=== PATIENT | male | born 1955 | race Caucasian/White ===

== ENCOUNTER → 2024-12-24 10:20 | Outpatient (CLI) | payer MEDICARE, OTHER, SELFPAY ==
[2024-12-24 18:59] LABS: Add Manual Diff / Slide Review NO; Basophils Absolute Auto 100 /uL (0-100); Basophils Percent Auto 0.9 % (0-2); Eosinophils Absolute Auto 0 /uL (0-450); Eosinophils Percent Auto 0.2 % (2-4); Hemoglobin 14.6 g/dL (13.5-17.5); Lymphocytes Absolute Auto 1000 /uL (1100-4500); Lymphocytes Percent Auto 11.5 % (25-40); Mean Corpuscular HGB Conc 34.7 % (30-36); Mean Corpuscular Hemoglobin 33.2 PG (26-34); Mean Corpuscular Volume 95.6 fL (80-100); Monocytes Absolute Auto 800 /uL (0-900); Monocytes Percent Auto 9.8 % (3-14); Neutrophils Absolute Auto 6400 /uL (1500-7000); Neutrophils Percent Auto 77.6 % (50-75); Platelet Count 297 X10^3/uL (150-400); Red Cell Distribution Width 13.2 % (11.6-14.8); White Blood Cell Count 8.3 X10^3/uL (4.5-11.0)
[2024-12-24 19:13] LABS: Alanine Aminotransferase 22 IU/L (<50); Albumin 4.3 g/dL (3.5-5.0); Albumin Globulin Ratio 1.7 (1.0-2.8); Alkaline Phosphatase 57 U/L (38-126); Aspartate Aminotransferase 26 IU/L (17-59); BUN Creatinine Ratio 18.7 (6-22); Bilirubin Total 0.5 mg/dL (0.2-1.3); Blood Urea Nitrogen 14 mg/dL (9-20); Calcium 9.8 mg/dL (8.4-10.2); Carbon Dioxide 27 mmol/L (22-32); Chloride 102 mmol/L (98-107); Estimated Glomerular Filt Rate > 60 mL/min (>60); Globulin 2.6 g/dL (1.7-4.1); Glucose 171 mg/dL (70-99); HEMOLYSIS < 15 (0-50); Magnesium 1.9 mg/dL (1.6-2.3); Potassium 3.9 mmol/L (3.4-5.1); Sodium 136 mmol/L (137-145); Total Protein 6.9 g/dL (6.3-8.2)
[2024-12-24 20:03] LABS: Hep C Virus Ab w/Reflex Quant NEGATIVE s/c (NEGATIVE)
== END ==
PROVIDERS: PCP Family Medicine; Visit Provider Physician Assistant
DX: R19.7 Diarrhea, unspecified (principal); Z11.59 Encounter for screening for other viral diseases
CPT/HCPCS: 80053; 83735; 85025; 86803

== ENCOUNTER → 2024-12-25 02:00 | Outpatient (CLI) | payer MEDICARE, OTHER, SELFPAY | PROVIDERS: PCP Family Medicine; Visit Provider Physician Assistant | DX: R19.7 Diarrhea, unspecified (principal) | CPT/HCPCS: 87045 ==

== ENCOUNTER → 2025-01-03 13:55 | Outpatient (CLI) | payer MEDICARE, OTHER, SELFPAY ==
--- NOTE | 2025-01-03 13:59 | DI.CT.S_ITS ---
PROCEDURE: CT ABDOMEN PELVIS W CON INDICATIONS: abdominal pain, diarrhea, wt loss TECHNIQUE: After the administration of intravenous contrast, axial sections acquired from the lung bases to the pubic symphysis. Coronal and sagittal reformats were performed. For radiation dose reduction, the following was used: automated exposure control, adjustment of mA and/or kV according to patient size. COMPARISON: None. FINDINGS: Image quality: Diagnostic. Lower Chest: No significant findings. ABDOMEN: Liver: No solid mass. Gallbladder: No radiopaque gallstones or wall thickening. Biliary ducts: No biliary dilation. Pancreas: No ductal dilation. Spleen: Size is within normal limits. Adrenal Glands: No adrenal nodules. Kidneys and Ureters: No hydronephrosis. No solid mass. No complex renal cystic lesion which requires follow up. Stomach and Bowel: There is a possible superficial lobulated mass involving the right lateral wall of the rectum which measures approximately 4.2 cm in length on coronal image 80 of series 3. It is also suggested on axial image 112 of series 2. Peritoneum: No abnormal intraperitoneal fluid. No free air. Ventral Wall: No significant ventral hernia. Abdominal Nodes: No retroperitoneal or mesenteric adenopathy by size criteria. Vessels: Aorta and inferior vena cava are normal in size. PELVIS: Pelvic Organs: Unremarkable. Bladder: No bladder wall thickening, accounting for underdistention. Pelvic Nodes: No enlarged lymph nodes. Miscellaneous: No inguinal hernias are seen. Bilateral hydroceles, very large on the left. Bones: No aggressive osseous abnormality. Presumed osteoporotic chronic compressions of T12, L1, L2, and L3. IMPRESSION: Suspect malignant lesion of the rectum. Recommend direct visualization. Consider rectal protocol MRI for staging if colonoscopy demonstrates the presence of a lesion. No metastatic disease identified. Bilateral hydroceles, including a very large left hydrocele. Multiple chronic presumed osteoporotic compressions. Dictated by: Nirav Salazar M.D. on 01/03/2025 at 15:52 Approved by: Nirav Salazar M.D. on 01/03/2025 at 15:58
== END ==
PROVIDERS: PCP Family Medicine; Referring Provider Family Medicine; Visit Provider Family Medicine
DX: R10.9 Unspecified abdominal pain (principal); R19.7 Diarrhea, unspecified; R10.30 Lower abdominal pain, unspecified; N43.3 Hydrocele, unspecified
CPT/HCPCS: 74177; Q9967

== ENCOUNTER 2025-01-03 15:35 | Emergency (ER) | payer MEDICARE, OTHER, SELFPAY ==
[2025-01-03] VITALS (7 sets, daily range): BP systolic 151–184; BP diastolic 77–88; PULSE 60–63; RESP 16–20; TEMP 37; O2SAT 98–100; BMI 18.8
--- NOTE | 2025-01-03 15:55 | EKG_ITS ---
[id number] [address] Test Date: 2025-01-03 Pat Name: Justin Banda Department: Room: Gender: Male Product Support Representative: RICHARD : 1955 Requested By: Order Number: [id number] Reading MD: Brendon Coronado Measurements Intervals [place] Rate: 61 P: 82 NC: 154 QRS: 45 QRSD: 82 T: 55 QT: 406 QTc: 408 Interpretive Statements Normal sinus rhythm Electronically Signed On 01-03-2025 19:08:32 PDT by Brendon Coronado
[2025-01-03] MEDS: SODIUM CHLORIDE 0.9% 1,000 ML 1000 ML IV (16:23)
[2025-01-03 16:24] LABS: Add Manual Diff / Slide Review NO; Basophils Absolute Auto 0 /uL (0-100); Basophils Percent Auto 0.5 % (0-2); Eosinophils Absolute Auto 0 /uL (0-450); Eosinophils Percent Auto 0.6 % (2-4); Hematocrit 42.3 % (41-53); Hemoglobin 14.4 g/dL (13.5-17.5); Lymphocytes Absolute Auto 1200 /uL (1100-4500); Lymphocytes Percent Auto 17.2 % (25-40); Mean Corpuscular Hemoglobin 32.5 PG (26-34); Mean Corpuscular Volume 95.5 fL (80-100); Monocytes Absolute Auto 600 /uL (0-900); Neutrophils Absolute Auto 5000 /uL (1500-7000); Neutrophils Percent Auto 72.7 % (50-75); Platelet Count 275 X10^3/uL (150-400); Red Blood Cell Count 4.42 X10^6/uL (4.5-5.9); Red Cell Distribution Width 13.3 % (11.6-14.8); White Blood Cell Count 6.9 X10^3/uL (4.5-11.0)
[2025-01-03 16:32] LABS: Alanine Aminotransferase 20 IU/L (<50); Albumin 4.3 g/dL (3.5-5.0); Albumin Globulin Ratio 1.5 (1.0-2.8); Alkaline Phosphatase 50 U/L (38-126); Aspartate Aminotransferase 24 IU/L (17-59); BUN Creatinine Ratio 22.5 (6-22); Bilirubin Total 0.5 mg/dL (0.2-1.3); Blood Urea Nitrogen 18 mg/dL (9-20); Calcium 9.3 mg/dL (8.4-10.2); Carbon Dioxide 28 mmol/L (22-32); Chloride 97 mmol/L (98-107); Estimated Glomerular Filt Rate > 60 mL/min (>60); Globulin 2.8 g/dL (1.7-4.1); Glucose 94 mg/dL (70-99); HEMOLYSIS < 15 (0-50); Lipase 96 U/L (23-300); Potassium 4.2 mmol/L (3.4-5.1); Sodium 133 mmol/L (137-145); Total Protein 7.1 g/dL (6.3-8.2)
--- NOTE | 2025-01-03 17:05 | ED.ABDPAIN ---
HPI - Abdominal Pain General Chief Complaint: Abdominal Pain Stated Complaint: Fatigue Time Seen by Provider: 01/03/25 16:44 Mode of arrival: Ambulatory History of Present Illness HPI narrative: 69-year-old male has had nonbloody diarrhea since 12/15/2024, seemed to be improved somewhat with change in diet to clears, no known celiac sprue, no known Crohn's disease or ulcerative colitis, no black or red stool, no mucoid stool, with some abdominal cramping earlier that seems to be improved. His pain seemed to be postprandial, but seemed to get some improvement with change in diet to clear liquid. He has however had a 10 lb weight loss in the last couple of weeks. He feels dehydrated. His PCP Dr. Quigley of [facility] had arranged outpatient CT abdomen and pelvis imaging which was obtained here earlier today, and apparently had IV fluid saline bag, feels improved in terms of general energy after IV fluid hydration. He would like to know the results of his CT scan. He also admits to insomnia, not necessarily related to frequent trips to the bathroom for loose stools, denies depression, though does have decreased appetite, not particularly anhedonic. Related Data Previous Rx's Medication Instructions Recorded alprazolam 0.25 mg tablet 0.25 mg PO BEDTIME PRN sleep #14 01/01/25 tabs Allergies Allergy/AdvReac Type Severity Reaction Status Date / Time No Known Drug Allergies Allergy Verified 12/31/24 15:29 Patient History Surgical History (Updated 12/26/24 @ 17:44 by Kimmy Zaragoza) Anesthesia H/O left wrist surgery (~2004) Family History (Updated 12/26/24 @ 17:46 by Kimmy Zaragoza) Father History of heart disease Stroke Kidney failure Grandmother Cancer Social History Smoking Status: Never smoker Smoking Status: Never smoker Exam Narrative Exam Narrative: GENERAL: Well-developed patient, in mild distress. HEAD: Atraumatic. Normocephalic. EYES: Pupils equal round and reactive. Extraocular motions intact. No scleral icterus. No injection or drainage. ENT: Nose without bleeding, purulent drainage. Throat without erythema, tonsillar hypertrophy or exudate. Airway patent. NECK: Trachea midline. Non tender CARDIOVASCULAR: Regular rate and rhythm without murmurs, gallops, or rubs. RESPIRATORY: Clear to auscultation. Breath sounds equal bilaterally. No wheezes, rales, or rhonchi. GASTROINTESTINAL: Abdomen soft, non-tender, nondistended. EXTREMITIES: No edema or joint tenderness. BACK: Nontender without deformity or crepitance. No flank tenderness. NEURO: AOx3. Motor functions grossly nonfocal. Psychiatric: Good eye contact, insight, no flight of ideas obvious. SKIN: No rash or erythema of visible areas Initial Vital Signs Initial Vital Signs: Vital Signs Temperature 98.6 F 01/03/25 15:41 Pulse Rate 63 01/03/25 15:41 Respiratory Rate 20 01/03/25 15:41 Blood Pressure 184/88 H 01/03/25 15:41 Pulse Oximetry 99 01/03/25 15:41 Oxygen Delivery Method Room Air 01/03/25 15:41 Course Orders Ordered: Discontinued Medications Sodium Chloride (Normal Saline 0.9%) 1,000 mls @ 1,000 mls/hr IV BOLUS ONE Stop: 01/03/25 17:18 Last Infusion: 01/03/25 17:28 Dose: Infused Documented By: Admin: 01/03/25 16:23 Dose: 1,000 mls/hr Documented By: SANDRA Ondansetron HCl (Ondansetron 4 Mg/2 Ml Inj) 4 mg IV NOW PRN PRN Reason: Nausea And Vomiting Ondansetron HCl (Ondansetron 4 Mg Odt) 4 mg PO NOW PRN PRN Reason: Nausea And Vomiting Vital Signs Vital signs: Vital Signs - 8 hr 01/03/25 15:41 01/03/25 16:01 01/03/25 16:30 Temperature 98.6 F Pulse Rate 63 60 60 Respiratory Rate 20 16 18 Blood Pressure 184/88 H Pulse Oximetry 99 98 100 Oxygen Delivery Method Room Air 01/03/25 16:30 01/03/25 17:00 01/03/25 17:00 Temperature Pulse Rate 60 Respiratory Rate 19 Blood Pressure 151/77 H 171/77 H Pulse Oximetry 99 Oxygen Delivery Method 01/03/25 18:14 01/03/25 18:15 01/03/25 18:15 Temperature Pulse Rate 60 61 Respiratory Rate Blood Pressure 177/85 H Pulse Oximetry 98 99 Oxygen Delivery Method 01/03/25 18:20 Temperature Pulse Rate 62 Respiratory Rate 16 Blood Pressure 177/85 H Pulse Oximetry 98 Oxygen Delivery Method Room Air MDM - Abdominal Pain Lab Data Attestation: I reviewed the patient's lab results. Lab results narrative: White blood cell count 6900, hemoglobin 14.4, platelets adequate. Glucose 94. Renal function normal. Sodium 133 mildly low, potassium normal. Serum CO2 normal. Normal liver functions and lipase. 01/03/25 16:12 01/03/25 16:12 Labs: Lab Results 01/03/25 Range/Units 16:12 WBC 6.9 (4.5-11.0) X10^3/uL RBC 4.42 L (4.5-5.9) X10^6/uL Hgb 14.4 (13.5-17.5) g/dL Hct 42.3 (41-53) % MCV 95.5 (80-100) fL MCH 32.5 (26-34) PG MCHC 34.0 (30-36) % RDW 13.3 (11.6-14.8) % Plt Count 275 (150-400) X10^3/uL Neut % (Auto) 72.7 (50-75) % Lymph % (Auto) 17.2 L (25-40) % [place] % (Auto) 9.0 (3-14) % Eos % (Auto) 0.6 L (2-4) % Baso % (Auto) 0.5 (0-2) % Neut # (Auto) 5000 (3210-6190) /uL Lymph # (Auto) 1200 (9593-6352) /uL [place] # (Auto) 600 (0-900) /uL Eos # (Auto) 0 (0-450) /uL Baso # (Auto) 0 (0-100) /uL Sodium 133 L (137-145) mmol/L Potassium 4.2 (3.4-5.1) mmol/L Chloride 97 L (98-107) mmol/L Carbon Dioxide 28 (22-32) mmol/L BUN 18 (9-20) mg/dL Creatinine 0.80 (0.66-1.25) mg/dL Estimated GFR > 60 (>60) mL/min BUN/Creatinine Ratio 22.5 H (6-22) Glucose 94 (70-99) mg/dL Calcium 9.3 (8.4-10.2) mg/dL Total Bilirubin 0.5 (0.2-1.3) mg/dL AST 24 (17-59) IU/L ALT 20 (<50) IU/L Alkaline Phosphatase 50 (38-126) U/L Total Protein 7.1 (6.3-8.2) g/dL Albumin 4.3 (3.5-5.0) g/dL Globulin 2.8 (1.7-4.1) g/dL Albumin/Globulin Ratio 1.5 (1.0-2.8) Lipase 96 (23-300) U/L ECG Data Attestation: I personally reviewed and interpreted this ECG as follows: Interpretation: 1555, Normal sinus rhythm with rate of 61, no obvious ST segment elevation or depression changes. DE 154, QRS 82, QTC 408. MDM Narrative Medical decision making narrative: 69-year-old male with recent 10 lb weight lost, lower abdominal cramping with diarrhea that seemed to be better with change from solid to liquid diet. CT abdomen and pelvis done as an outpatient performed a few hours ago, they would like to know the results. Also recent anxiety and prescription for alprazolam. Afebrile, sirs screen negative. Normal affect. Abdomen benign, nondistended. Records review. CT abdomen and pelvis done as an outpatient earlier today. Report located and printed for patient. Impressions: ?Suspect malignant lesion of the colon. Recommend direct visualization. Consider rectal protocol MRI for staging if colonoscopy demonstrates presence of a lesion. No metastatic disease identified. Bilateral hydroceles, including a very large left hydrocele. Multiple chronic presumed osteoporotic compressions.? See outpatient radiology report White blood cell count not elevated, hemoglobin 14 adequate, no anemia at this time. Renal function adequate. Liver functions noted to be normal. Serum albumin 4.3 normal, with regard to nutritional status seems adequate. There is no mention of any metastatic disease on the CT scan, no bowel obstruction changes. He describes no GI bleeding symptoms. Copy of the report provided to the patient with explanation, suspected cancerous malignant change in the rectum. Likely next step needs biopsy confirmation of the diagnosis suspected by imaging. No Gastroenterology on staff here. Consider general surgery referral. Follow up with General surgery or Gastroenterology for likely tissue biopsy. Patient encouraged to follow up with PCP Dr Quigley at [facility] to see if he wants to proceed with Gastroenterology approach or General surgery approach for biopsy. Likely needs referral from primary care provider. Regarding recent diarrhea that seems better with clear liquid diet, continue Ensure with supplementation as currently doing. Appears well hydrated at present. Regarding recent insomnia, consider continue use of Xanax prescribed from PCP. Seems to be helping. Although might have increased anxiety with new suspected diagnosis of rectal lesion, possible cancer. Discharged home with , copy of CT Abd/Pelvis report provided. Encouraged to follow up with his PCP after this holiday weekend at [facility] Dr. Quigley, to coordinate further care of suspected rectal lesion. Discharge Plan Departure Patient Disposition: Home Clinical Impression: Lesion of rectum, Diarrhea Activity Restrictions/Additional Instructions: Recent diarrhea and weight loss, CT abdomen and pelvis scan done as an outpatient. CT showed suspected rectal lesion, suspected malignancy (cancerous) like changes, but no obvious metastatic disease unavailable imaging in the abdominopelvic and lower lung regions that were imaged. There was no bowel obstruction changes at this time. Consider follow up with General surgery for biopsy, or with Gastroenterology although there is no renal nurse on staff here. Your primary care provider might refer you to a gastroenterology specialists for this. Is important to have biopsy performed to confirm or rule out malignancy (cancer) to facilitate further staging and workup and care plan. You had recent diarrhea that seemed to be improved with the change in your diet to clear liquid, continue that for now pending referrals and further workup as above. Recheck with your regular provider Dr. Quigley on [facility] on Monday01/07/2025. Return earlier to this/nearest emergency department for any change worsening symptoms or any concerns prior. Prescriptions: No Action alprazolam 0.25 mg tablet 0.25 mg PO BEDTIME PRN (Reason: sleep) Qty: 14 0RF Referrals: Ayo Campos MD [Physician] - Torey Quigley MD [Primary Care Provider] - Stand Alone Forms: Patient Portal/API/Survey
== END 2025-01-03 18:21 | disposition home or self-care (01) ==
PROVIDERS: Emergency Provider Emergency Medicine; PCP Family Medicine
DX: K62.89 Other specified diseases of anus and rectum (principal); R10.30 Lower abdominal pain, unspecified; R19.7 Diarrhea, unspecified; R63.4 Abnormal weight loss; Z68.1 Body mass index [BMI] 19.9 or less, adult; R10.9 Unspecified abdominal pain; N43.3 Hydrocele, unspecified
CPT/HCPCS: 36415; 74177; 80053; 83690; 85025; 93005; 96360; 99284; Q9967

== ENCOUNTER → 2025-01-07 08:50 | Outpatient (CLI) | payer MEDICARE, OTHER, SELFPAY | LOC: LAB 03-19 17:56 | PROVIDERS: PCP Family Medicine; Referring Provider Family Medicine; Visit Provider Family Medicine | DX: R19.7 Diarrhea, unspecified (principal) | CPT/HCPCS: 87177; 87329 ==

== ENCOUNTER → 2025-01-08 11:55 | Outpatient (CLI) | payer MEDICARE, OTHER, SELFPAY | PROVIDERS: PCP Family Medicine; Visit Provider Family Medicine | DX: R10.9 Unspecified abdominal pain (principal); R19.7 Diarrhea, unspecified | CPT/HCPCS: 87045; 87177 ==

== ENCOUNTER → 2025-01-10 13:05 | Outpatient (CLI) | payer MEDICARE, OTHER, SELFPAY ==
[2025-01-10 19:21] LABS: Clostridium Difficile Tox PCR Negative for C. diff (Negative)
== END ==
PROVIDERS: PCP Family Medicine; Visit Provider Family Medicine
DX: R19.7 Diarrhea, unspecified (principal)
CPT/HCPCS: 87205; 87493

== ENCOUNTER 2025-01-17 11:37 | Day surgery (SDC) | payer MEDICARE, OTHER, SELFPAY ==
--- NOTE | 2025-01-17 | PATH_ITS ---
[facility] Accession Number: [id number] No. of containers..01 Tissue . 01 Material submitted: . rectum - RECTAL MASS . 01 Diagnosis: RECTAL MASS: Tubulovillous adenoma. No high-grade dysplasia or malignancy. [facility] 01/23/2025 1147 Local . 01 Electronically signed: . Eleni Mcgarry MD, Pathologist NPI- [id number] . 01 Gross description: . RECTAL MASS: Received in formalin are 4 fragments of pereyra soft tissue measuring 1.0 x 1.0 x 0.5 cm in aggregate. Specimen is sectioned and submitted in its entirety in 2 cassettes. /[place] 01/21/2025 1854 Local . 01 Pathologist provided ICD-10: D12.8 . 01 CPT . 933881 Specimen Comment: A courtesy copy of this report has been sent to [facility] Pathology Performed at: [address], [place], [place] [id number] MD Talat Craig MD Phone: [phone]
[2025-01-17] MEDS: LACTATED RINGERS 1,000 ML 42 ML IV (12:23)
--- NOTE | 2025-01-17 12:47 | PM.PREOP ---
Pre-operative Note COVID-19 COVID-19 status: Not tested Interval Note History & Physical reviewed/Exam performed by Physician: Yes Changes to H&P: No ASA Class (for procedural sedation): II
[2025-01-17 13:38] VITALS: BP 88/56; PULSE 68; RESP 12; TEMP 36.1; O2SAT 96
--- NOTE | 2025-01-17 13:38 | PM.OP.ENDO ---
Operative Date/Time/Diagnoses Date of procedure: 01/17/25 Time of procedure: 13:00 Pre-op diagnosis: Unexplained weight loss. Intolerance of regular diet. Post-op diagnosis: same Procedure & Clinicians Study performed: Upper endoscopy Same procedure as scheduled: Yes Indications: Unexplained weight loss intolerance of regular diet Surgeon: Torey Anthony Procedure Notes Procedure in detail: Patient was placed on the gurney in the endo suite left lateral decubitus position with a bite block between his incisors. IV sedation was administered. When an appropriate level of sedation had been achieved an upper endoscope was passed transorally into the esophagus stomach and duodenal under direct endoscopic vision. Exam was performed retrograde. Duodenal was normal through its 3rd portion. The gastric antrum was unremarkable in appearance. There were no ulcerations or mucosal abnormalities. Gastric corpus and fundus were similarly normal in appearance. The Z-line was at 43 cm from the incisors. Distal mid and upper esophagus were normal in appearance as the scope was withdrawn. Specimen(s): none sent Complications: none Impression: Normal upper endoscopy Post-procedure Plan for aftercare: Discharge to home when awake and alert. Follow up: weeks (One-week) Disposition: PACU
[2025-01-17 13:43] VITALS: BP 87/66; PULSE 72; RESP 14; O2SAT 98
--- NOTE | 2025-01-17 13:43 | PM.OP.COLON ---
Operative Date/Time/Diagnoses Date of procedure: 01/17/25 Time of procedure: 12:57 Pre-op diagnosis: Rectal mass on CT scan Post-op diagnosis: same Procedure & Clinicians Study performed: Colonoscopy with biopsy Same procedure as scheduled: Yes Indications: Rectal mass on CT Surgeon: Torey Anthony Procedure Notes Procedure in detail: The patient was transported to the endo suite and was retained on the table in the left lateral decubitus position. He remained sedated from prior EGD. A flexible fiberoptic colonoscope was passed transanally into the rectum and around the cecum under direct endoscopic vision. Exam was performed retrograde. Prep was marginal. Cecum was positively identified at the confluence of tenia coli and the ileocecal valve. Cecum and ascending colons were without evidence of mucosal abnormality. Hepatic flexure and transverse colon as well as the splenic flexure were similarly without evidence of polyp arteriovenous malformation or ulceration. Descending colon was normal in appearance. Sigmoid colon was somewhat tortuous but there were no diverticuli or other mucosal abnormalities. A 5 x 7 cm rectal mass was encountered 8 cm from the anal verge. A biopsy was taken using hot biopsy snare and was secured in a Lukens trap. Hemostasis was obtained with the hot snare. The remainder of the rectum was normal as the scope was withdrawn. The patient tolerated the procedure well and was transported to the recovery room in good condition. 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 Follow up: weeks (Colorectal surgery referral to be arranged through my office.) Disposition: PACU
[2025-01-17 13:48] VITALS: BP 99/65; PULSE 68; RESP 16; O2SAT 99
[2025-01-17 13:56] VITALS: BP 102/67; PULSE 71; RESP 16; O2SAT 100
[2025-01-17 14:02] VITALS: BP 124/75; PULSE 80; RESP 18; TEMP 36.1; O2SAT 100
== END 2025-01-17 14:38 | disposition home or self-care (01) ==
PROVIDERS: PCP Family Medicine; Referring Provider Surgery; Visit Provider Surgery
PROC: 0DJ08ZZ Inspection of Upper Intestinal Tract, Via Natural or Artificial Opening Endoscopic (ICD-10-PCS; CPT 45385; principal; 2025-01-17 12:45)
PROC: 0DJD8ZZ Inspection of Lower Intestinal Tract, Via Natural or Artificial Opening Endoscopic (ICD-10-PCS; CPT 45378; 2025-01-17 12:45)
DX: D12.8 Benign neoplasm of rectum (principal); R63.4 Abnormal weight loss; K90.49 Malabsorption due to intolerance, not elsewhere classified; R10.13 Epigastric pain; Z87.891 Personal history of nicotine dependence
CPT/HCPCS: 45385; 43235; J2704; J3010